=== PATIENT | female | born 1945 | race Caucasian/White ===

== ENCOUNTER 2020-09-23 14:08 | Emergency (ER) | payer MEDICARE, MEDICAID, SELFPAY ==
[2020-09-23 14:59] VITALS: BP 200/91; PULSE 113; RESP 20; TEMP 37.6; O2SAT 91; BMI 30.2
[2020-09-23 15:38] VITALS: BP 179/94; PULSE 111; RESP 20; TEMP 37.6; O2SAT 95
--- NOTE | 2020-09-23 16:08 | XR_ITS ---
EXAMINATION: XR BILATERAL HIPS WITH AP PELVIS CLINICAL INFORMATION: Bilateral hip pain, worse on the right side COMPARISON: 07/06/2017 TECHNIQUE: AP and frog-leg lateral views of each hip and an AP view of the pelvis. FINDINGS: There is no fracture or dislocation. The femoral heads are well-seated within their acetabula. Mild joint space narrowing of both hips with subchondral sclerosis. The pelvic rim is intact. The bowel gas pattern is unremarkable. XR/XR hip BI w PEL1V IMPRESSION: No fracture or malalignment. Mild degenerative changes of both hips.
--- NOTE | 2020-09-23 16:08 | XR_ITS ---
EXAMINATION: XR KNEE, RIGHT CLINICAL INFORMATION: Fall. Pain. COMPARISON: Previous x-ray October 2012 TECHNIQUE: Four views of the right knee. FINDINGS: Bone alignment is normal. No fracture or dislocation is seen. There is arthritis at the medial femoral tibial joint with joint space narrowing and osteophyte formation. Joint spaces are otherwise normal. There is no joint effusion. There is soft tissue calcification adjacent to the medial tibial plateau questionable for evidence of old soft tissue injury. XR/XR knee RT 4V IMPRESSION: No acute fracture or dislocation. Degenerative changes at the medial femoral tibial joint.
--- NOTE | 2020-09-23 16:10 | ED.LOWEXIN ---
HPI - Extremity Injury (Lower) General Chief Complaint: Extremity Injury, Lower Stated Complaint: low extremity pain Time Seen by Provider: 09/23/20 16:00 Source: patient Mode of arrival: wheelchair Limitations: no limitations History of Present Illness HPI Narrative: Patient comes to the emergency room complaining of right-sided hip pain and right knee pain. Patient states approximately 6 days ago patient fell going up the stairs, patient states that she landed on her back and then turned and injured her right knee. Patient states she has no back pain at all. All the pain is in the right hip and right knee. Patient states that the next day she went to see her jeep mechanic regarding the pain from the fall, x-rays were done in [place], according to the patient no fractures were seen, patient received 1 steroid injection in her right knee. Patient states that the pain continues and it is actually getting worse. Patient has been trying ibuprofen for pain control with no success. Patient usually ambulates with a cane which she left at home. Patient denies hitting her head, no loss of consciousness. Patient denies being on blood thinners. Of note, patient states that she was recently informed that she has cancer again. Patient states she does not know what kind of cancer it is or where it is. Patient states that soon she will be starting chemotherapy after she returns from her trip to [place] Related Data Previous Rx's Medication Instructions Recorded oxycodone-acetaminophen [Percocet] 1 tab PO Q6H PRN #16 tab 09/23/20 Allergies Allergy/AdvReac Type Severity Reaction Status Date / Time No Known Allergies Allergy Unverified 06/23/20 16:46 Review of Systems Review of Systems: Constitutional : No Weight loss, No Fever, No Chills, No Night Sweats, No Fatigue, No Malaise ENT/Mouth : No Hearing loss, No Ear Pain, No Nasal Congestion, No Sinus Pain, No Hoarseness, No sore throat, No Rhinorrhea, No Swallowing Difficulty Eyes: No Eye Pain, No Swelling, No Redness, No Foreign Body, No Discharge, No Vision Changes Cardiovascular : No Chest Pain, No SOB, No Dyspnea on Exertion, No Orthopnea, No Edema, No Palpitations Respiratory : No Cough, No Sputum, No Wheezing, No Smoke Exposure, No Dyspnea Gastrointestinal : No Nausea, No Vomiting, No Diarrhea, No Constipation, No abdominal Pain, No Hematochezia, No Melena Genitourinary : no irregular bleeding, No Dysuria, No Urinary Frequency, No Hematuria, No Urinary Incontinence, No Urgency, No Flank Pain, No Urinary Flow Changes, No Hesitancy Musculoskeletal : Patient complaining of right-sided hip pain and right-sided knee pain. Skin : No Skin Lesions, No rash Neuro : No Weakness, No Numbness, No Paresthesias, No Loss of Consciousness, No Dizziness, No Headache Psych : No Anxiety/Panic, No Depression, No SI/HI/AH/VH, No Social Issues, Heme/Lymph: No Bruising, No Bleeding,No Lymphadenopathy Endocrine : No Polyuria, No Polydipsia, No Temperature Intolerance [facility] [place] Past Medical History Medical History (Updated 09/23/20 @ 17:39 by Merle Bravo MD) Asthma HTN (hypertension) Social History Social History Advance Directives: No Advance Directives Information Provided: No Physical Exam Vital Signs: Vital Signs: Last Vital Signs Temp 99.4 F 09/23/20 16:45 Pulse 107 H 09/23/20 16:45 Resp 14 09/23/20 16:45 BP 170/82 H 09/23/20 16:45 Pulse Ox 95 09/23/20 16:45 Body Mass Index 30.2 Appearance: Alert. Oriented X3. No acute distress. Eyes: Pupils equal, round and reactive to light. ENT: Pharynx normal. Neck: Normal inspection. Neck supple. No lymph nodes noted. No crepitus CVS: Normal heart rate and rhythm. Pulses normal. Normal S1 and S2 Respiratory: No respiratory distress. Breath sounds normal. No Wheezing. No rales Abdomen: Soft and nontender. No rigidity. No distention. good BS x4 Skin: Old ecchymosis in lower and upper extremities, warm, dry Extremities: No lower extremity edema. No lacerations, rash. Patient is able to flex and extend both knees and hips bilaterally, patient complaining of moderate pain in her right knee when trying to flex and extend Neuro: Oriented X 3. No motor deficit. No sensory deficit. Moving all extermities. No slurred speech. Course Course Course Narrative: I discussed the imaging with the patient, patient does not have any fractures. Patient's pain likely musculoskeletal due to contusions. Patient states that she has a follow-up call appointment with her PCP on Saturday, 3 days from now MDM - Extremity Injury (Lower) Imaging Data Hip and pelvis x-ray: Radiologist's impression: There is no fracture or dislocation. The femoral heads are well-seated within their acetabula. Mild joint space narrowing of both hips with subchondral sclerosis. The pelvic rim is intact. The bowel gas pattern is unremarkable. XR/XR hip BI w PEL1V IMPRESSION: No fracture or malalignment. Mild degenerative changes of both hips. knee x ray: Radiologist's impression: Bone alignment is normal. No fracture or dislocation is seen. There is arthritis at the medial femoral tibial joint with joint space narrowing and osteophyte formation. Joint spaces are otherwise normal. There is no joint effusion. There is soft tissue calcification adjacent to the medial tibial plateau questionable for evidence of old soft tissue injury. XR/XR knee RT 4V IMPRESSION: No acute fracture or dislocation. Degenerative changes at the medial femoral tibial joint. Discharge Plan Discharge Clinical Impression: Contusion of soft tissue Patient Disposition: Home, Self-Care Instructions: Contusion in Adults (ED), Hematoma (ED) Prescriptions: New oxycodone-acetaminophen [Percocet] 5-325 mg tablet 1 tab PO Q6H PRN (Reason: pain) Qty: 16 RF: 0
[2020-09-23 16:45] VITALS: BP 170/82; PULSE 107; RESP 14; TEMP 37.4; O2SAT 95
[2020-09-23] MEDS: oxyCODONE HCl Immed Release 5 MG TABLET PO (17:41)
== END 2020-09-23 18:24 | disposition home or self-care (01) ==
PROVIDERS: Emergency Provider Emergency Medicine; PCP Internal Medicine
DX: S70.01XA Contusion of right hip, initial encounter (principal); S80.01XA Contusion of right knee, initial encounter; W10.9XXA Fall (on) (from) unspecified stairs and steps, initial encounter; I10 Essential (primary) hypertension; Y93.9 Activity, unspecified; Y92.9 Unspecified place or not applicable; Y99.9 Unspecified external cause status
CPT/HCPCS: 73521; 73564; 99283; 99284

== ENCOUNTER 2020-10-24 12:38 | Emergency (ER) | payer MEDICARE, MEDICAID, SELFPAY ==
[2020-10-24 12:43] VITALS: BP 145/86; PULSE 104; RESP 18; TEMP 36.9; O2SAT 98; BMI 32.4
--- NOTE | 2020-10-24 12:47 | CT_ITS ---
EXAMINATION: CT HIP WITHOUT CONTRAST, RIGHT CLINICAL INFORMATION: Fall. Evaluate for fracture. COMPARISON: Previous pelvis and bilateral hip x-ray September 2020 TECHNIQUE: Axial images through the right hip without contrast. Sagittal and coronal reconstructions on the technologist workstation were performed. This CT examination was performed using dose optimization techniques as appropriate, variously including the following: *Automated exposure control *Adjustment of mA and/or kV according to patient size (this includes techniques or standardized protocols for targeted exams where dose is matched to indication/reason for exam; i.e. extremities or head) *Use of iterative reconstruction technique DLP: 238 mGy-cm FINDINGS: There is a permeative lytic lesion in the right iliac bone extending to the right superior lateral acetabulum. There is destruction of the cortex and small associated lateral soft tissue mass laterally. This area measures approximately 3 cm. Appearance is concerning for a neoplastic process, either metastatic disease or myeloma. Infection should also be considered. There is question of lucency or possible lytic lesion in the visualized left proximal sacrum on earliest images as well for example axial image 1-6 series 9. There is mild joint space narrowing at the right hip joint. Significant osteophyte formation is not seen. No fracture or dislocation is seen. There are degenerative changes at the pubic symphysis. There is evidence of atherosclerotic disease. There may be diverticulosis of the colon. Images of the visualized pelvis are otherwise unremarkable. No ascites or adenopathy is seen. No hernia is seen. No hip joint effusion is seen. CT/CT hip RT wo con IMPRESSION: Permeative lytic lesion in the right iliac bone extending to the superior lateral acetabulum. There is some disruption of the cortex and a small lateral soft tissue component laterally. Neoplastic process such as metastatic disease or myeloma should be considered. Differential would include infection. No hip fracture is seen. Question lytic disease in the left proximal sacrum as well.
--- NOTE | 2020-10-24 12:48 | ED.LOWEXIN ---
HPI - Extremity Injury (Lower) General Chief Complaint: Extremity Injury, Lower <MOSHE Meza - Last Filed: 10/24/20 12:50> Stated Complaint: Pain Right Leg No Injury <MOSHE Meza - Last Filed: 10/24/20 12:50> Time Seen by Provider: 10/24/20 12:47 <MOSHE Meza - Last Filed: 10/24/20 12:50> Source: patient <Kayla Ledezma DO - Last Filed: 10/24/20 16:47> Mode of arrival: ambulatory <Kayla Ledezma DO - Last Filed: 10/24/20 16:47> Limitations: no limitations <Kayla Ledezma DO - Last Filed: 10/24/20 16:47> History of Present Illness MD complaint: hip injury <Kayla Ledezma DO - Last Filed: 10/24/20 16:47> Onset (ago): month(s) (2) <Kayla Ledezma DO - Last Filed: 10/24/20 16:47> Injury: Right: hip <Kayla Ledezma DO - Last Filed: 10/24/20 16:47> Type of Injury: blunt <Kayla Ledezma DO - Last Filed: 10/24/20 16:47> Place: home <Kayla Ledezma DO - Last Filed: 10/24/20 16:47> Severity: moderate <Kayla Ledezma DO - Last Filed: 10/24/20 16:47> Relieving factors: nothing <Kayla Ledezma DO - Last Filed: 10/24/20 16:47> Exacerbating factors: movement <Kayla Ledezma DO - Last Filed: 10/24/20 16:47> Context: fall <Kayla Ledezma DO - Last Filed: 10/24/20 16:47> Other symptoms: none <Kayla Ledezma DO - Last Filed: 10/24/20 16:47> Treatments prior to arrival: other (does well with percocet at home) <Kayla Ledezma DO - Last Filed: 10/24/20 16:47> Related Data Home Medications: Home Medications Medication Instructions Recorded Confirmed acetaminophen 500 mg PO Q8H PRN 10/24/20 10/24/20 albuterol sulfate [Ventolin HFA] 2 puff INHALATION Q4H PRN 10/24/20 10/24/20 alendronate 70 mg PO MO@0800 10/24/20 10/24/20 amlodipine 2.5 mg PO DAILY 10/24/20 10/24/20 calcium carbonate-vitamin D3 1 tab PO DAILY 10/24/20 10/24/20 [Calcium + D] gabapentin 400 mg PO TID 10/24/20 10/24/20 ibuprofen 800 mg PO TID 10/24/20 10/24/20 ipratropium-albuterol [Combivent 1 puff INHALATION QID PRN 10/24/20 10/24/20 Respimat] mirtazapine 30 mg PO BEDTIME 10/24/20 10/24/20 oxycodone 10 mg PO Q8H PRN 10/24/20 10/24/20 quetiapine 100 mg PO BEDTIME 10/24/20 10/24/20 <MOSHE Meza - Last Filed: 10/24/20 12:50> Allergies/Adverse Reactions: Allergies Allergy/AdvReac Type Severity Reaction Status Date / Time No Known Allergies Allergy Verified 10/24/20 12:43 <MOSHE Meza - Last Filed: 10/24/20 12:50> Review of Systems Review of Systems: Constitutional : No Fever, No Chills ENT/Mouth : No Ear Pain, No Hoarseness, No sore throat Eyes: No Eye Pain, No Swelling, No Redness, No Foreign Body Cardiovascular : No Chest Pain, No SOB Respiratory : No Cough, No Dyspnea Gastrointestinal : No Nausea, No Vomiting, No Diarrhea, No abdominal Pain Genitourinary : No Dysuria, No Hematuria Musculoskeletal : positive joint pain, No Myalgias, No Joint Swelling Skin : No Skin lacerations, No rash Neuro : No Weakness, No Numbness, No Loss of Consciousness, No Dizziness, No Headache Psych : No Anxiety/Panic, No Depression All other systems reviewed and are negative <DO Ho Chase Last Filed: 10/24/20 16:47> [facility] Past Medical History Attestation statement: The following information was validated with the patient. <DO Ho Chase Last Filed: 10/24/20 16:47> Medical History: Medical History Arthritis Asthma HTN (hypertension) <MOSHE Meza - Last Filed: 10/24/20 12:50> Social History Social History: Social History (Updated 10/24/20 @ 13:04 by Kayla Ledezma DO) Alcohol intake: unknown Smoking Status: Never smoker Smoked in Last 30 Days: No Use of substances other than those prescribed or required for medical reasons: Unknown Advance Directives: No Advance Directives Information Provided: No <MOSHE Meza - Last Filed: 10/24/20 12:50> Physical Exam Vital Signs: Vital Signs: Last Vital Signs Temp 98.4 F 10/24/20 12:43 Pulse 97 10/24/20 16:19 Resp 18 10/24/20 16:19 BP 160/82 H 10/24/20 16:19 Pulse Ox 94 10/24/20 16:19 Body Mass Index 32.4 <MOSHE Meza - Last Filed: 10/24/20 12:50> Vital Signs: Last Vital Signs Temp 98.4 F 10/24/20 12:43 Pulse 97 10/24/20 16:19 Resp 18 10/24/20 16:19 BP 160/82 H 10/24/20 16:19 Pulse Ox 94 10/24/20 16:19 Body Mass Index 32.4 <Kayla Ledezma DO - Last Filed: 10/24/20 16:47> Appearance: Alert. Oriented X3. No acute distress. Eyes: Pupils equal, round and reactive to light. ENT: Pharynx normal. Neck: Normal inspection. Neck supple. CVS: Normal heart rate and rhythm. Pulses normal. Respiratory: No respiratory distress. Breath sounds normal. Abdomen: Soft and nontender. Skin: Skin warm and dry. Normal skin color. Normal skin turgor. Extremities: No lower extremity edema. No calf ttp bounding distal pulses, reports pain in R hip with range of motion testing but she is able to bear weight Neuro: Oriented X 3. No motor deficit. No sensory deficit. <Kayla Ledezma DO - Last Filed: 10/24/20 16:47> Course Course Course Narrative: Rapid medical assessment upon arrival: 75 y/o female with history of osteoarthritis, fibromyalgia presenting with 2 months of worsening right hip pain s/p fall 2 months ago. XR negative at that time. Tender throughout right lateral and anterior right hip. PCP rec further testing to r/o undx fracture. Unable to bear weight. CT scan ordered. Defer full medical assessment and plan to primary provider in the ED. <MOSHE Meza - Last Filed: 10/24/20 12:50> MDM - Extremity Injury (Lower) MDM Narrative Medical decision making narrative: 75 yo feamle with R hip pain x 2 months post fall - xrays negative at that time, here for CT scan to r/o occult fracture she does not her pain was controlled with percocet, her orthopedics doctor is in [place] but she has not seen them, no signs of infection, [place] intact [place] [facility] [place] [employer] listed on chart possible medical vs STR admit discussed CT findings with patient and her daughter no call back from her physician office is closed, will keep in ED overnight to establish a plan <Kayla Ledezma DO - Last Filed: 10/24/20 16:47> Lab Data Result diagrams: : 10/24/20 14:56 10/24/20 14:56 <MOSHE Meza - Last Filed: 10/24/20 12:50> Labs: Lab Results 10/24/20 10/24/20 10/24/20 Range/Units 12:38 14:56 14:56 WBC 8.1 (4.8-10.8) X10*3/uL RBC 5.39 (4.20-5.50) X10*6/uL Hgb 13.9 (12.0-16.0) g/dl Hct 45.0 (37-47) % MCV 83.5 (80-98) fL MCH 25.8 L (27.0-33.0) pg MCHC 30.9 L (31.0-35.0) g/dl RDW 14.8 (11.0-16.0) % Plt Count 288 (160-400) X10*3/uL MPV 11.6 (9.4-12.3) fL Immature Gran % (Auto) 0.4 (0.0-0.4) % Neut % (Auto) 46.1 (45-73) % Lymph % (Auto) 26.8 (20-40) % [place] % (Auto) 24.0 H (2-11) % Eos % (Auto) 2.6 (0-4) % Baso % (Auto) 0.1 (0-2) % Lymph # (Auto) 2.2 (1.2-4.9) X10*3/uL [place] # (Auto) 2.0 H (0.1-1.2) X10*3/uL Eos # (Auto) 0.2 (0.0-0.4) X10*3/uL Baso # (Auto) 0.0 (0.0-0.2) X10*3/uL Abs Immat Gran (auto) 0.03 (0.00-0.03) X10*3/uL Absolute Neuts (auto) 3.8 (2.0-8.3) X10*3/uL Absolute Nucleated RBC 0.000 (0.0-0.012) X10*3/uL Nucleated RBC % (auto) 0.0 (0.0-0.2) /100WBC Smear Tech's Comments VERIFIED Sodium 141 (135-145) mmol/L Potassium 3.9 (3.3-5.1) mmol/l Chloride 105 (96-108) mmol/L Carbon Dioxide 24 (22-29) mmol/L Anion Gap 16 (12-20) BUN 14 (9-16) mg/dL Creatinine 0.87 (0.5-1.4) mg/dL Estim Creat Clear Calc 50.6 Estimated GFR > 60 Random Glucose 103 (60-115) mg/dL Calcium 9.2 (8.4-10.2) mg/dL COVID-19 ([facility]) Positive A (Negative) COVID-19 Clin Com See Note <MOSHE Meza - Last Filed: 10/24/20 12:50> Lab Results 10/24/20 10/24/20 10/24/20 Range/Units 12:38 14:56 14:56 WBC 8.1 (4.8-10.8) X10*3/uL RBC 5.39 (4.20-5.50) X10*6/uL Hgb 13.9 (12.0-16.0) g/dl Hct 45.0 (37-47) % MCV 83.5 (80-98) fL MCH 25.8 L (27.0-33.0) pg MCHC 30.9 L (31.0-35.0) g/dl RDW 14.8 (11.0-16.0) % Plt Count 288 (160-400) X10*3/uL MPV 11.6 (9.4-12.3) fL Immature Gran % (Auto) 0.4 (0.0-0.4) % Neut % (Auto) 46.1 (45-73) % Lymph % (Auto) 26.8 (20-40) % [place] % (Auto) 24.0 H (2-11) % Eos % (Auto) 2.6 (0-4) % Baso % (Auto) 0.1 (0-2) % Lymph # (Auto) 2.2 (1.2-4.9) X10*3/uL [place] # (Auto) 2.0 H (0.1-1.2) X10*3/uL Eos # (Auto) 0.2 (0.0-0.4) X10*3/uL Baso # (Auto) 0.0 (0.0-0.2) X10*3/uL Abs Immat Gran (auto) 0.03 (0.00-0.03) X10*3/uL Absolute Neuts (auto) 3.8 (2.0-8.3) X10*3/uL Absolute Nucleated RBC 0.000 (0.0-0.012) X10*3/uL Nucleated RBC % (auto) 0.0 (0.0-0.2) /100WBC Smear Tech's Comments VERIFIED Sodium 141 (135-145) mmol/L Potassium 3.9 (3.3-5.1) mmol/l Chloride 105 (96-108) mmol/L Carbon Dioxide 24 (22-29) mmol/L Anion Gap 16 (12-20) BUN 14 (9-16) mg/dL Creatinine 0.87 (0.5-1.4) mg/dL Estim Creat Clear Calc 50.6 Estimated GFR > 60 Random Glucose 103 (60-115) mg/dL Calcium 9.2 (8.4-10.2) mg/dL COVID-19 ([facility]) Positive A (Negative) COVID-19 Clin Com See Note <Kayla Ledezma DO - Last Filed: 10/24/20 16:47> Discharge Plan Discharge Clinical Impression: Lytic bone lesion of hip, COVID-19 <MOSHE Meza - Last Filed: 10/24/20 12:50> Prescriptions: No Action ibuprofen 800 mg tablet 800 mg PO TID RF: 0 alendronate 70 mg tablet 70 mg PO MO@0800 RF: 0 amlodipine 2.5 mg tablet 2.5 mg PO DAILY RF: 0 calcium carbonate-vitamin D3 [Calcium + D] 600 mg(1,500mg) -200 unit Tablet 1 tab PO DAILY RF: 0 quetiapine 100 mg tablet 100 mg PO BEDTIME RF: 0 acetaminophen 500 mg tablet 500 mg PO Q8H PRN (Reason: Pain (Scale Score 1-3)) RF: 0 mirtazapine 30 mg tablet 30 mg PO BEDTIME RF: 0 gabapentin 300 mg capsule 400 mg PO TID RF: 0 albuterol sulfate [Ventolin HFA] 90 mcg/actuation HFA aerosol inhaler 2 puff inhalation Q4H PRN (Reason: Shortness Of Breath) RF: 0 oxycodone 10 mg tablet 10 mg PO Q8H PRN (Reason: pain) RF: 0 Combivent Respimat 20-100 mcg/actuation mist 1 puff inhalation QID PRN (Reason: Shortness Of Breath) RF: 0 <MOSHE Meza - Last Filed: 10/24/20 12:50>
[2020-10-24] MEDS: oxyCODONE HCl Immed Release 5 MG TABLET PO ×2 (13:27→19:26)
[2020-10-24 15:18] LABS: Basophils Percent Auto 0.1 % (0-2); Eosinophils Absolute Auto 0.2 X10*3/uL (0.0-0.4); Eosinophils Percent Auto 2.6 % (0-4); Hemoglobin 13.9 g/dl (12.0-16.0); Imm Gran Abs Auto 0.03 X10*3/uL (0.00-0.03); Imm Gran Pct Auto 0.4 % (0.0-0.4); Lymphocytes Absolute Auto 2.2 X10*3/uL (1.2-4.9); Lymphocytes Percent Auto 26.8 % (20-40); MANUAL DIFF FLAG SCAN; Mean Corpuscular HGB Conc 30.9 g/dl (31.0-35.0); Mean Corpuscular Hemoglobin 25.8 pg (27.0-33.0); Mean Corpuscular Volume 83.5 fL (80-98); Mean Platelet Volume 11.6 fL (9.4-12.3); Neutrophils Absolute Auto 3.8 X10*3/uL (2.0-8.3); Neutrophils Percent Auto 46.1 % (45-73); Platelet Count 288 X10*3/uL (160-400); Red Blood Count 5.39 X10*6/uL (4.20-5.50); Red Cell Distribution Width 14.8 % (11.0-16.0); SCAN SMEAR FLAG 1; White Blood Count 8.1 X10*3/uL (4.8-10.8)
[2020-10-24 15:41] LABS: COVID-19 Test Positive (Negative)
[2020-10-24 15:51] LABS: Anion Gap 16 (12-20); Blood Urea Nitrogen 14 mg/dL (9-16); Calcium 9.2 mg/dL (8.4-10.2); Carbon Dioxide 24 mmol/L (22-29); Chloride 105 mmol/L (96-108); Creatinine Clr Calc Pharmacy 50.6; Estimated Glomerular Filt Rate > 60; Glucose Random 103 mg/dL (60-115); Potassium 3.9 mmol/l (3.3-5.1); Sodium 141 mmol/L (135-145)
[2020-10-24 15:54] LABS: SLIDE REVIEW VERIFIED
[2020-10-24 16:19] VITALS: BP 160/82; PULSE 97; RESP 18; O2SAT 94
[2020-10-24 18:00] VITALS: BP 134/74; PULSE 94; RESP 18; TEMP 37.1; O2SAT 97
[2020-10-24 20:00] VITALS: BP 130/76; PULSE 97; RESP 18; TEMP 36.7; O2SAT 97
[2020-10-24 22:00] VITALS: BP 152/76; PULSE 85; RESP 18; TEMP 37.1; O2SAT 93
[2020-10-25] VITALS (8 sets, daily range): BP systolic 144–157; BP diastolic 64–82; PULSE 78–96; RESP 16–20; TEMP 36.1–37.1; O2SAT 94–96
[2020-10-25] MEDS: oxyCODONE HCl Immed Release 5 MG TABLET PO (01:26)
--- NOTE | 2020-10-25 06:15 | PC.NURSE ---
pt slept thur the night no distress. needs met at bedside .
--- NOTE | 2020-10-25 09:10 | PC.NURSE ---
pt's daughter jaycee ([phone]) called pt on her cell phone and this rn was in the room at the time. this rn updated pt's daughter on pt's status.
--- NOTE | 2020-10-25 09:18 | PC.NURSE ---
pt did not eat breakfast. pt not hungry at this time.
[2020-10-25] MEDS: amLODIPine Besylate 2.5 MG TABLET PO (09:45)
[2020-10-25] MEDS: Ibuprofen 800 MG TABLET PO (09:45)
[2020-10-25] MEDS: Acetaminophen 325 MG TABLET 487.5 MG PO (09:45)
[2020-10-25] MEDS: Gabapentin 300 MG CAPSULE 400 MG PO (09:46)
[2020-10-25] MEDS: Calcium + Vitamin D 250 MG TABLET 500 MG PO (10:39)
[2020-10-25] MEDS: Albuterol/Iprat 2.5/0.5MG 3 ML AMPUL.NEB INHALE (11:25)
[2020-10-25] MEDS: oxyCODONE HCl Immed Release 5 MG TABLET 10 MG PO (13:50)
== END 2020-10-25 14:03 | disposition home or self-care (01) ==
PROVIDERS: Emergency Provider Emergency Medicine; PCP Internal Medicine
DX: U07.1 COVID-19 (principal); M89.8X8 Other specified disorders of bone, other site; I10 Essential (primary) hypertension; J45.909 Unspecified asthma, uncomplicated; Z91.81 History of falling
CPT/HCPCS: 36415; 73700; 80048; 85025; 87635; 94640; 97162; 99285